=== PATIENT | female | born 1950 | race Caucasian/White ===

== ENCOUNTER 2024-05-11 11:16 | Emergency (ER) | payer MEDICARE, SELFPAY ==
[2024-05-11 11:20] VITALS: BP 128/68; PULSE 55; RESP 20; TEMP 36.6; O2SAT 98
--- NOTE | 2024-05-11 11:45 | DI.RAD_ITS ---
Exam(s) XR KNEE LT 4V AP,LAT,SHARMIN,PAT EXAM: XR KNEE LT 4V AP,LAT,SHARMIN,PAT CLINICAL HISTORY: pain patella and knee post fall. TECHNIQUE: 2D digital imaging was performed. COMPARISON: No exams were available for comparison FINDINGS: Four views: There is displaced comminuted fracture of the inferior half of the patella. There is a joint effusio n-hemarthrosis. No other fractures evident. No joint space narrowing. No osseous lesions. IMPRESSION: Displaced comminuted patellar fracture. DATA REPOSITORY: RADIATION DOSE DELIVERED:
--- NOTE | 2024-05-12 08:21 | W.ED.GENAD ---
Discharge Plan Disposition Patient Disposition: Home Condition: Stable Discharge Details Clinical Impression: Patellar fracture Primary Care Provider: Unknown,Unknown ED Provider: Margarita Fry Home Meds and New Rx's Prescriptions: New oxycodone-acetaminophen [Percocet] 5-325 mg tablet 1 tab PO Q8H PRNQty: 8 0RF Continued aspirin 325 MG tablet,delayed release (DR/EC) 325 mg PO DAILY metoprolol tartrate 12.5 MG tablet 12.5 mg PO DAILY flecainide 100 mg tablet 100 mg PO 2XD Patient Comments: TAKE 1 TABLET TWICE A DAY Discharge Instructions Instructions: Patella Fracture (DC) Additional Instructions: Dr. Michel will likely operate on your patellar fracture tomorrow, they will call you to confirm surgery tonight Hold your aspirin No food or fluid after 12 AM Ice, elevate, Tylenol 650 every 6 hours as needed for pain, you may take the oxycodone as needed for pain uncontrolled with Tylenol Should you have sensation change or worsening pain, please be reevaluated Referrals: Jordan Michel MD [ [facility] STAFF PHYSICIAN] - 1 day Discharge Data Discharge Date/Time-TO BE ENTERED AT DEPARTURE: 05/11/24 13:24 HPI General Date/Time Provider Initiated Documentation: 05/11/24 11:47. HPI Narrative: This rosa 73-year-old female presents post fall from standing. Patient's foot got stuck in the garage door cord. She landed directly on her left knee. She denies any additional injuries. She is not anticoagulated. Past medical history significant for atrial fibrillation on flecainide and aspirin Related Data Home Medications ?Medication ?Instructions ?Recorded ?Confirmed aspirin 325 mg tablet,delayed 325 mg PO DAILY 04/02/15 05/11/24 release metoprolol tartrate 25 mg tablet 12.5 mg PO DAILY 04/02/15 05/11/24 flecainide 100 mg tablet 100 mg PO 2XD 05/11/24 05/11/24 oxycodone-acetaminophen 5 mg-325 1 tab PO Q8H PRN #8 tabs 05/11/24 05/11/24 mg tablet (Percocet) Previous Rx's ?Medication ?Instructions ?Recorded oxycodone-acetaminophen 5 mg-325 1 tab PO Q8H PRN #8 tabs 11/20/24 mg tablet (Percocet) Allergies Allergy/AdvReac Type Severity Reaction Status Date / Time No Known Allergies Allergy Verified 05/11/24 14:26 General Stated Complaint: Orthopedic JULIAN: 4 Exam Narrative Exam Narrative: Alert, oriented, no visible signs of head injury, no left hip pain or left ankle pain, neurovascularly intact, patella with evidence of prepatellar bursitis And swelling. Small quarter sized ecchymosis to right wrist, range of motion intact, neurovascularly intact all 4 extremities. Course Vital Signs Vital signs: Vital Signs Temperature 36.6 C 05/11/24 11:20 Pulse 55 L 05/11/24 11:20 Respiratory Rate 20 05/11/24 11:20 Blood Pressure 128/68 05/11/24 11:20 Pulse Oximetry 98 05/11/24 11:20 Temperature 36.6 C 05/11/24 11:20 Pulse 55 L 05/11/24 11:20 Respiratory Rate 20 05/11/24 11:20 Respiratory Effort Normal 05/11/24 11:21 Blood Pressure 128/68 05/11/24 11:20 Blood Pressure Position Sitting 05/11/24 11:20 Pulse Oximetry 98 05/11/24 11:20 Oxygen Delivery Method Room Air 05/11/24 11:20 Oxygen Flow Rate 0 05/11/24 11:20 Pain Level 5 05/11/24 12:32 Medical Decision Making 73-year-old female presenting with injury to left knee. X-ray shows evidence of displaced patellar fracture with effusion in knee per radiology interpretation and my review. Case discussed with Dr. Michel recommendation for surgery. Patient placed in a knee immobilizer and given crutches. She will be n.p.o. after midnight and orthopedics will call to arrange surgery. Patient is neurovascularly intact. Patient is ambulatory with steady gait. Weightbearing as tolerated with knee immobilizer in place. Small amount of oxycodone distributed, risk of addiction reviewed. Discharged home ambulatory with safe gait with Quality:SDOH Health Related Social Needs: No Data to Display PFSH All Active Problems (Updated 05/12/24 @ 07:33 by Jordan Michel MD) Displaced fracture of left patella (Acute 05/11/24) Herpes zoster (Acute) Medical History (Updated 05/12/24 @ 07:33 by Jordan Michel MD) Afib See's cardiology in [place] per pt. states last seen 10/2023 Surgical History (Updated 05/11/24 @ 14:25 by Frank Silva) Hx of wisdom tooth extraction Social History Smoking/Tobacco Use Status: Never Smoking risk assessment performed?: Yes Alcohol Intake: current Alcohol Intake frequency: a few times a week Drug use: Never Substance use type: does not use Housing: house Do you feel safe at home: Yes Do you feel safe in your relationship?: Yes PAWSS Have you Been Recently Intoxicated or Drunk Within the Last 30 days?: No Have you Ever Experienced Previous Episodes of Alcohol Withdrawal?: No Have you ever Experienced Withdrawal Seizures?: No Have you ever Experienced Delirium Tremens(DT)s?: No Have you ever undergone Alcohol Rehabilitation Treatment (i.e, inpt ot outpatient treatment programs)?: No Have you ever Experienced Blackouts?: No Have you ever Combined Alcohol with other Downers within the last 90 days?: No Have you ever Combined Alcohol with any other Substance of Abuse during the last 90 days?: No Positive Blood Alcohol level on Presentation? [PCS.BAL]: No Evidence of Increased Autonomic Activity (i.e. HR>120, tremor, sweating, agitation, nausea)?: No Result: 0
--- NOTE | 2024-06-08 15:16 | NUR.NOTE ---
Acessed Pt chart to print discharge summary for [facility]
== END 2024-05-11 13:24 | disposition home or self-care (01) ==
LOC: ER 13:47
PROVIDERS: Emergency Provider Physician Assistant
DX: S82.092A Other fracture of left patella, initial encounter for closed fracture (principal); M25.062 Hemarthrosis, left knee; I48.91 Unspecified atrial fibrillation; Z79.82 Long term (current) use of aspirin; W18.39XA Other fall on same level, initial encounter; Y93.01 Activity, walking, marching and hiking; Y92.015 Private garage of single-family (private) house as the place of occurrence of the external cause
CPT/HCPCS: 99284; 73564

== ENCOUNTER 2024-05-12 10:48 | Day surgery (SDC) | payer MEDICARE, SELFPAY ==
[2024-05-12] VITALS (15 sets, daily range): BP systolic 90–128; BP diastolic 44–78; PULSE 37–61; RESP 12–23; TEMP 36.3–37; O2SAT 95–100; BMI 19.6
--- NOTE | 2024-05-12 07:19 | W.PM.DSUDISC ---
Date of service: 05/12/24 Time of Service: 16:00 Discharge Plan Disposition Patient Disposition: Home Condition: Stable Discharge Details Attending Provider: Jordan Michel Primary Care Provider: Unknown,Unknown Home Meds and New Rx's Prescriptions: New naproxen 250 mg tablet 250 mg PO BID PRN (Reason: Moderate pain) Qty: 20 0RF tramadol 50 mg tablet 50 mg PO TID PRN (Reason: moderate to severe pain) Qty: 10 0RF Continued aspirin 325 MG tablet,delayed release (DR/EC) 325 mg PO DAILY metoprolol tartrate 12.5 MG tablet 12.5 mg PO DAILY flecainide 100 mg tablet 100 mg PO 2XD Patient Comments: TAKE 1 TABLET TWICE A DAY oxycodone-acetaminophen [Percocet] 5-325 mg tablet 1 tab PO Q8H PRNQty: 8 0RF Discharge Instructions Additional Instructions: Surgery: Open treatment patella fracture with partial excision and patellar tendon advancement/repair Activity: Weightbearing as tolerated with knee in full extension for 8 weeks. Use knee brace when ambulatory to maintain knee straight. Crutches or walker for support. You may loosen/remove knee brace while resting with knee straight. Outpatient physical therapy will be prescribed on follow-up. CONSERVATIVE patellar tendon repair protocol- No active knee extension for 6 weeks. Weightbearing in full extension for 8 weeks. Flexion 0-30 degrees at week 2, advance about 10 degrees/week with goal 0-90 degrees flexion at week 8 postop and 120 degrees flexion week 10. Gentle spin/bike after 10 weeks, close?chain strengthening after 3 months, eccentric strengthening after 4 months Prescriptions: Resume home aspirin 325mg daily tomorrow morning Naproxen 250 mg take 1 every 12 hours with a meal as needed for moderate pain (do not use at same time as ibuprofen) Tramadol 50 mg take 1 every 8 hours as needed for severe pain You may use [id number]-[id number] Tylenol (acetaminophen) as needed for mild to moderate pain. These pain medications may be taken all at once or in different combinations as needed. Dressings: Leave splint and dressing in place until follow-up. Keep clean and dry at all times. Follow-up: 10-[address] Michel. You may take off the leg compression stockings this evening at home. You may also leave them on a few days longer if you have a history of leg swelling or edema. Let us know right away if you develop any redness, drainage, fevers, chest pain, or trouble breathing. Do not drink alcohol or drive for at least 24 hours after anesthesia. Please call the office during business hours with any questions or concerns. Discharge Orders Discharge Orders: Discharge Order (Routine); Ordered 05/12/24 Ordered By: Hipolito Mcmillan DS: Diagnosis Discharge Diagnosis (1) Displaced fracture of left patella: Status: Acute
--- NOTE | 2024-05-12 07:33 | ROE_ITS ---
Operative Note Operative Note PRE-OP DIAGNOSIS: Left displaced comminuted patella fracture POST-OP DIAGNOSIS: same PROCEDURE: Open treatment left patella fracture, CPT #05345: Partial excision and soft tissue repair SURGEON: Jordan Michel [employer]ITAL CAMPAIGN FUNDRAISER: Hipolito Mcmillan ANESTHESIA TYPE: Local By Surgeon and General LMA/ETT Refer to Anesthesia Record ESTIMATED BLOOD LOSS: 10 COMPLICATIONS: None Patient was transported to: PACU Patient's condition: stable Indications: Please see complete medical record for details. Findings: Significantly comminuted distal patella fracture with poor bone quality Procedure Description: In the operating room, general anesthesia was induced. The patient was positioned supine on the operating room table. All bony prominences were well- padded. Preoperative antibiotics were administered. The left knee was prepped and draped in the usual sterile fashion. The correct patient, procedure, and side of the procedure were all verified prior to incision. Longitudinal incision was made full-thickness down to the patella fracture, hematoma evacuated, fracture site exposed. There was only a small amount of extension medially and laterally into the retinaculum. There was significant comminution and loose soft bone fragments in the distal segment. The proximal segment was intact. The articular segment distally maybe about 10% was free floating between many eggshell thin soft pieces of the remainder of the distal bone loosely attached to the patellar tendon. Initial attempts were made with bone clamps to reduce this articular segment within the distal fragments and patellar tendon repair to the proximal fragment. Various bone clamps were used as well as suturing the retinaculum with suture tape repair and then a [id number]-pt-[id number] quadriceps to patellar tendon FiberTape repair. Unfortunately, the separate segmental articular segment could not be stabilized this way and continued to rotate through testing. The fiber tape was removed, this segmental piece of bone was reduced to the proximal segment as the distal pieces were too small and thin for fixation, and secured with a clamp taking care to orient the articular layer properly to the proximal segment. The bone on this piece was very soft. It was not amenable to screw fixation so instead a 2 mm bone tunnel was made into it through the proximal patella exiting the dorsal surface Hewson suture passer used to shuttle a suture tape and then tied to secure the segment. The proximal remainder of the many small shell like fragments were then brought approximately, but it became apparent this repair really needed a patellar tendon repair construct to have any strong fixation between the patellar tendon including the small fragments and the main segment of the patella and the remainder of the extensor mechanism. The small segmental piece of bone could not really be used in this repair and it was really just in the way preventing firmly attaching the patellar tendon to the remainder of the patella so it was excised. Bone tunnels were drilled in the remainder of the patella distal to proximal small rents made in the quadriceps to retrieve passing sutures. The patellar tendon was then sutured FiberTape Krak?w fashion including the many small bone fragments that were still attached to the proximal aspect of the patellar tendon and the free ends shuttled through the bone tunnels in the patella, reduction maintained and knots tied over the proximal patella bone nicely securing the main segment and reduced fashion to the patellar tendon and numerous bony fragments. The piece that had been removed was then used as bone graft with the bone removed from the articular cartilage made into tiny compat ible bone and compacted into the patellar tendon bone fragments and main patellar segment area. A 2.5 mm drill was then used to make 3 holes in the patella and bone clamps used to create a tunnel from the dorsal surface centimeter from the fracture site through the fracture and through which suture tape was used to secure the bony fragments around the bone graft to the remainder of the intact patella medially centrally and laterally. The retinacular repair was then completed medially and laterally with suture tape [id number] as well. X-rays showed reasonable appearance of the bone frag ments and patellar alignment. The construct was stable tested through knee flexion to about 45 degrees with no gapping or displacement. A few loose dorsal fragments were removed in order to prevent kneeling irritation from prominence. A FiberTape on a Alli needle was then used in a circumferential fashion around the patella with the knots tied superiorly to the patella pursestring additional repair. Wound was copiously irrigated normal saline. Subcutaneous tissue closed with 2- 0 Monocryl. Subcuticular with 3-0 Monocryl running followed by skin glue soft roll Fernando bandage and knee immobilizer to maintain the knee in full extension. The patient awoke from anesthesia without complication and was transferred to the recovery room in a stable condition. Date of Procedure: 05/12/24
--- NOTE | 2024-05-12 07:33 | W.ORTHOCONSU ---
Date of service: 05/12/24 Time of Service: 12:42 Assessment and Plan Assessment and plan (1) Displaced fracture of left patella: Status: Acute Assessment and plan: 73-year-old female with left displaced patella fracture. The patient had a mechanical slip and fall yesterday while closing her garage door. Subsequently seen in the ER, x-rays obtained, given a long-leg knee immobilizer and crutches. Patient took 1 Percocet last night before bed. Reports mild discomfort at rest, increased discomfort with movement. Denies any other significant injury from the fall. Denies numbness, tingling, weakness. Patient has a history of A-fib, takes full dose aspirin daily, last taken on 05/10/2024. Patient also takes flecainide and metoprolol. Typically in a regular rhythm. No known drug allergies. Patient admits that there are a couple steps to get into her house and then her bedroom is on the second story. Left knee moderate generalized edema, no skin breakdown, not vigorously tested but obvious deformity over the anterior knee patella. Sensory vascular intact throughout including distally. Left knee x-rays show displaced comminuted especially distally patella fracture Discussed thoroughly, recommend operative intervention for relatively healthy ambulatory patient. Increased bruising bleeding risk due to aspirin, but acceptable to proceed with the surgery. Could consider tourniquet use. Resume aspirin postoperatively for A-fib and DVT prophylaxis. Plan on weightbearing as tolerated in full extension with knee immobilizer, crutches or walker. Reviewed elevated risk for patellar post as traumatic arthritis. Decision to proceed with surgery today left patella ORIF The risks, benefits, and alternatives were thoroughly discussed. Patient was counseled regarding pain management, expected postoperative course, and recovery timeline. All questions were answered. Informed consent was obtained. Agree and understand treatment plan. Follow up 10-14 days after surgery. Will call if any changes or concerns. Breathing comfortably on room air. No coughs or wheezes. 2+ left radial pulse. Regular rate and rhythm. PFSH All Active Problems Displaced fracture of left patella (Acute 05/11/24) Herpes zoster (Acute) Medical History Afib See's cardiology [place] per pt. states last seen 10/2023 Surgical History Hx of wisdom tooth extraction Social History Smoking/Tobacco Use Status: Never Smoking risk assessment performed?: Yes Alcohol Intake: current Alcohol Intake frequency: a few times a week Drug use: Never Substance use type: does not use Housing: house Do you feel safe at home: Yes Do you feel safe in your relationship?: Yes
[2024-05-12] MEDS: Lactated Ringers 1,000 ML 30 ML IV (11:51)
--- NOTE | 2024-05-12 11:57 | W.ANESPRE ---
General Info Date of Service Date Performed: 05/12/24 Height: 5 ft 9 in Weight: 60.3 kg Body Mass Index (BMI): 19.6 Surgical Procedure: Operation Date: 05/12/24 12:55 Proposed Procedure Side Surgeon p Knee ORIF Patella Left Jordan Michel MD Meds Allergies and Home Medications Allergies Allergy/AdvReac Type Severity Reaction Status Date / Time No Known Allergies Allergy Verified 05/12/24 11:17 Home Medication ?Medication ?Instructions ?Recorded aspirin 325 mg tablet,delayed 325 mg PO DAILY 04/02/15 release metoprolol tartrate 25 mg tablet 12.5 mg PO DAILY 04/02/15 flecainide 100 mg tablet 100 mg PO 2XD 05/11/24 oxycodone-acetaminophen 5 mg-325 1 tab PO Q8H PRN #8 tabs 05/11/24 mg tablet (Percocet) Current Visit Medications: Current Medications Generic Name Dose Route Start Last Admin Trade Name Freq PRN Reason Stop Dose Admin Ringer's Solution 1,000 mls @ 30 mls/hr 05/12/24 06:00 05/12/24 11:51 IV 05/12/24 23:59 30 mls/hr INFUSION WM Administration Cefazolin Sodium/Dextrose 2 gm in 50 mls @ 100 mls/hr 05/12/24 06:00 Ancef Duplex IVPB 05/12/24 23:59 PREOP WM Tranexamic Acid 1,000 mg/ 110 mls @ 660 mls/hr 05/12/24 06:00 Sodium Chloride IVPB 05/12/24 23:59 PREOP WM IV Miscellaneous Supplies 1 each 05/12/24 06:00 Iv Access IV 05/12/24 23:59 DIRECTED WM Oxycodone HCl 0 mg 05/12/24 07:18 Oxycodone 5 Mg Tab PO 06/11/24 07:17 Q3H PRN PRN Pain Sodium Chloride 0 ml 05/12/24 06:00 Normal Saline Flush 10 Ml Syr IV 05/12/24 23:59 PRN PRN Sodium Chloride 0 ml 05/12/24 06:00 Normal Saline 10 Ml Vial IJ 05/12/24 23:59 DIRECTED PRN Sterile Water 0 ml 05/12/24 06:00 Water,Injection,Sterile 10 Ml Vial IJ 05/12/24 23:59 DIRECTED PRN PFSH Active Problems Active Problems: Problem Status Onset Code Displaced fracture of left patella Acute 05/11/24 [id number] Herpes zoster Acute B02.9 Medical History Medical History Afib See's cardiology in [place] per pt. states last seen 10/2023 Surgical History Surgical History Hx of wisdom tooth extraction Tobacco Smoking/Tobacco Use Status: Never Alcohol Alcohol Intake: current Alcohol intake frequency: a few times a week Substance Use Substance use: Never Substance use type: does not use Vital Signs and Lab Results Vital Signs Most Recent Vital Signs in EMR: Most Recent Vital Signs Temp Pulse Resp BP Pulse Ox 37.0 C 37 L 20 124/50 L 98 05/12/24 11:20 05/12/24 11:20 05/12/24 11:20 05/12/24 11:20 05/12/24 11:20 Lab Results Blood Type / Crossmatch: No Data to Display Complete Blood Count: No Data to Display Complete Metabolic Panel: No Data to Display Liver Function Panel: No Data to Display Coagulation Panel: No Data to Display Cardiac Panel: No Data to Display Arterial Blood Gas: No Data to Display Venous Blood Gas: No Data to Display Pancreas Panel: No Data to Display Thyroid Panel: No Data to Display Infectious Disease: No Data to Display Blood Cultures: No Data to Display Toxicology Panel: No Data to Display Anesthesia Assessment and Plan Anesthesia History Personal History: No History of Anesthesia Complications Family History: No Family History of Anesthesia Complications Exercise Tolerance Exercise Tolerance: Metabolic Equivalents>4 Cardiac & Pulmonary Exam Cardiac Exam: Normal S1/S2 Heart Sounds Pulmonary Exam: Clear Bilateral Breath Sounds Implantable Cardiac Device Does patient have a Pacemaker or an ICD?: No Airway Exam Known Difficult Airway: No Mallampati Class: 3 Mouth Opening: Normal (> 3cm) Thyromental Distance: Greater than 3 cm Neck Range of Motion: Full ROM Neck Circumference: Normal Teeth Condition: Normal Dentition ASA Classification ASA Score: ASA 2 Emergency Case?: No NPO Status NPO Status: NPO Clears >2 hours, Solids >8 hours Anesthesia Plan Resuscitation Status: Full Code Anesthesia Technique: General Anesthesia Airway Planned: Endotracheal Tube Pain Management: Surgeon and patient request nerve block Monitors Used: Standard Monitors Preoperative Comments:: 73 yo female for patella fracture repair. Sig PMHx: afib (flecainide, metoprolol), never smoker, occ EtOH. denies other major. Previous Anes: none in our system.
--- NOTE | 2024-05-12 12:24 | W.ANESPRE ---
General Info Date of Service Date Performed: 05/12/24 Height: 5 ft 9 in Weight: 60.3 kg Body Mass Index (BMI): 19.6 Surgical Procedure: Operation Date: 05/12/24 12:55 Proposed Procedure Side Surgeon p Knee ORIF Patella Left Jordan Michel MD Meds Allergies and Home Medications Allergies Allergy/AdvReac Type Severity Reaction Status Date / Time No Known Allergies Allergy Verified 05/12/24 11:17 Home Medication ?Medication ?Instructions ?Recorded aspirin 325 mg tablet,delayed 325 mg PO DAILY 04/02/15 release metoprolol tartrate 25 mg tablet 12.5 mg PO DAILY 04/02/15 flecainide 100 mg tablet 100 mg PO 2XD 05/11/24 oxycodone-acetaminophen 5 mg-325 1 tab PO Q8H PRN #8 tabs 05/11/24 mg tablet (Percocet) naproxen 250 mg tablet 250 mg PO BID PRN Moderate pain 05/12/24 #20 tabs tramadol 50 mg tablet 50 mg PO TID PRN moderate to 05/12/24 severe pain #10 tabs Current Visit Medications: Current Medications Generic Name Dose Route Start Last Admin Trade Name Freq PRN Reason Stop Dose Admin Ringer's Solution 1,000 mls @ 30 mls/hr 05/12/24 06:00 05/12/24 11:51 IV 05/12/24 23:59 30 mls/hr INFUSION WM Administration Cefazolin Sodium/Dextrose 2 gm in 50 mls @ 100 mls/hr 05/12/24 06:00 Ancef Duplex IVPB 05/12/24 23:59 PREOP WM Tranexamic Acid 1,000 mg/ 110 mls @ 660 mls/hr 05/12/24 06:00 Sodium Chloride IVPB 05/12/24 23:59 PREOP WM IV Miscellaneous Supplies 1 each 05/12/24 06:00 Iv Access IV 05/12/24 23:59 DIRECTED WM Oxycodone HCl 0 mg 05/12/24 07:18 Oxycodone 5 Mg Tab PO 06/11/24 07:17 Q3H PRN PRN Pain Sodium Chloride 0 ml 05/12/24 06:00 Normal Saline Flush 10 Ml Syr IV 05/12/24 23:59 PRN PRN Sodium Chloride 0 ml 05/12/24 06:00 Normal Saline 10 Ml Vial IJ 05/12/24 23:59 DIRECTED PRN Sterile Water 0 ml 05/12/24 06:00 Water,Injection,Sterile 10 Ml Vial IJ 05/12/24 23:59 DIRECTED PRN PFSH Active Problems Active Problems: Problem Status Onset Code Displaced fracture of left patella Acute 05/11/24 S82.002A Herpes zoster Acute B02.9 Medical History Medical History Afib See's cardiology in [place] per pt. states last seen 10/2023 Surgical History Surgical History Hx of wisdom tooth extraction Tobacco Smoking/Tobacco Use Status: Never Alcohol Alcohol Intake: current Alcohol intake frequency: a few times a week Substance Use Substance use: Never Substance use type: does not use Vital Signs and Lab Results Vital Signs Most Recent Vital Signs in EMR: Most Recent Vital Signs Temp Pulse Resp BP Pulse Ox 37.0 C 37 L 20 124/50 L 98 05/12/24 11:20 05/12/24 11:20 05/12/24 11:20 05/12/24 11:20 05/12/24 11:20 Lab Results Blood Type / Crossmatch: No Data to Display Complete Blood Count: No Data to Display Complete Metabolic Panel: No Data to Display Liver Function Panel: No Data to Display Coagulation Panel: No Data to Display Cardiac Panel: No Data to Display Arterial Blood Gas: No Data to Display Venous Blood Gas: No Data to Display Pancreas Panel: No Data to Display Thyroid Panel: No Data to Display Infectious Disease: No Data to Display Blood Cultures: No Data to Display Toxicology Panel: No Data to Display Anesthesia Assessment and Plan Anesthesia History Personal History: No History of Anesthesia Complications Family History: No Family History of Anesthesia Complications Exercise Tolerance Exercise Tolerance: Metabolic Equivalents>4 Pertinent Negatives Pertinent Negatives: No Symptoms of GERD Cardiac & Pulmonary Exam Cardiac Exam: Normal S1/S2 Heart Sounds Pulmonary Exam: Clear Bilateral Breath Sounds Implantable Cardiac Device Does patient have a Pacemaker or an ICD?: No Airway Exam Known Difficult Airway: No Mallampati Class: 3 Mouth Opening: Normal (> 3cm) Thyromental Distance: Greater than 3 cm Neck Range of Motion: Full ROM Neck Circumference: Normal Teeth Condition: Normal Dentition ASA Classification ASA Score: ASA 2 Emergency Case?: No NPO Status NPO Status: NPO Clears >2 hours, Solids >8 hours Anesthesia Plan Resuscitation Status: Full Code Anesthesia Technique: General Anesthesia Airway Planned: Endotracheal Tube Pain Management: Surgeon and patient request nerve block Monitors Used: Standard Monitors and SedLine
[2024-05-12] MEDS: Lactated Ringers 1,000 ML 50 ML IV (13:05)
[2024-05-12] MEDS: ceFAZolin 2 GM/50 ML BAG IVPB (13:12)
[2024-05-12] MEDS: Bupivacaine 0.25% Pres-Free W/EPI 30 ML VIAL (13:30)
--- NOTE | 2024-05-12 14:04 | ANES.NERVE_ITS ---
Nerve Block Single Injection Procedure Date and Time Date Performed: 05/12/24 Procedure Start: 12:46 Location Where Procedure Performed Procedure Location: Day Surgery Unit Reason Performed: Postoperative Analgesia Requesting Provider: Jordan Michel Timeout Performed Timeout Performed: Yes Monitoring Used ECG, Blood Pressure and SpO2 Sterility Sterility: Hand Hygiene, Surgical Cap, Surgical Mask, Sterile Gloves and Chlorhexidine Sedation Given During Procedure Sedation Given (Indicate Dose Given): No Sedation given Patient Mental Status Patient Mental Status: Awake Nerve Block 1st Nerve Block: Laterality: Left Block Type: Adductor Canal Ultrasound Image Saved?: Yes Needle / Catheter Used: 100mm SonoPlex II Local Anesthetic Bolus (Indicate Dose Given): Lidocaine used for local in filtration of skin, Injected in 3-5ml increments after negative blood aspiration, Bupivacaine 0.25% Dose:: 11 mL and Exparel Dose:: 10 mL Additives (Indicate Dose Given): None Ultrasound: Sterile probe cover and gel used Nerve Stimulator: Supplement to Ultrasound use and No twitch or parasthesia noted < 0.5 mA Paresthesia: None Procedure Tolerated: No Complications Procedure Outcome: Successful Performed By: Ramón Gomez Supervised By: Hernandez Sloan
--- NOTE | 2024-05-12 15:10 | DI.RAD_ITS ---
Exam(s) XR KNEE LT 1V EXAM: XR KNEE LT 1V CLINICAL HISTORY: Displaced fracture of left patella. TECHNIQUE: 2D and realtime digital imaging was performed. COMPARISON: CR XR KNEE LT 4V AP,LAT,SHARMIN,PAT from 05/11/2024 FINDINGS: Hard copy images show are in more removal of the fracture fragments at the inferior pole of the mims la Please see procedure note for details. Fluoro time: 57.4seconds RADIATION DOSE DELIVERED: [email or web address] Lennon=2.97 mGy
--- NOTE | 2024-05-12 16:22 | W.ANESPOSTOP ---
Postoperative Evaluation Date, Time and Location Date Performed: 05/12/24 Time Performed: 16:22 Patient Location: Day Surgery Unit Vital Signs Most Recent Imported Vital Signs: Most Recent Vital Signs Temp Pulse Resp BP Pulse Ox 36.5 C 59 L 18 109/59 L 95 05/12/24 16:00 05/12/24 16:09 05/12/24 16:09 05/12/24 16:09 05/12/24 16:09 Pain Score Most Recent Pain Score: Most Recent Pain Score Pain Level 0 05/12/24 16:00 Assessment Mental Status: Awake (Alert & Oriented to Patient Baseline) Airway and Respiratory Function: Patent airway with normal (patient baseline) respiratory exam Cardiovascular Function: Hemodynamically Stable Hydration Status: Adequately Hydrated Nausea & Vomiting: No Nausea or Vomiting Pain: Pt. Denies Any Pain Peripheral Nerve Block: Regional nerve block not resolved at time of post operative discharge
[2024-05-13 08:01] VITALS: BMI 19.6
== END 2024-05-12 17:08 | disposition home or self-care (01) ==
LOC: SUR 10:48
PROVIDERS: Visit Provider Student in an Organized Health Care Education/Training Program
PROC: (CPT 27524; principal; 2024-05-12 12:45)
DX: S82.042A Displaced comminuted fracture of left patella, initial encounter for closed fracture; W01.0XXA Fall on same level from slipping, tripping and stumbling without subsequent striking against object, initial encounter; G89.18 Other acute postprocedural pain
CPT/HCPCS: 27524; 64447; 76000; 73560; C9290; J0131; J0665; J0690; J1100; J2371; J2405; J2704

== ENCOUNTER 2024-05-24 15:28 | Outpatient (CLI) | payer MEDICARE, SELFPAY ==
--- NOTE | 2024-05-24 11:15 | DI.RAD_ITS ---
Exam(s) XR KNEE LT 2V AP,LAT EXAM: XR KNEE LT 2V AP,LAT INDICATION: F/U FRACTURE. COMPARISON: CR XR KNEE LT 4V AP,LAT,SHARMIN,PAT from 05/11/2024 XA XR KNEE LT 1V from 05/12/2024 TECHNIQUE: 2D digital imaging was performed. Two views. FINDINGS: Stable stable alignment fracture at the inferior pole of the patella. Some anterior soft tissue swel ling remains present. DATA REPOSITORY: RADIATION DOSE DELIVERED:
== END 2024-05-24 15:29 | disposition home or self-care (01) ==
LOC: DIORS 15:28
PROVIDERS: Visit Provider Student in an Organized Health Care Education/Training Program
DX: S82.042D Displaced comminuted fracture of left patella, subsequent encounter for closed fracture with routine healing; X58.XXXD Exposure to other specified factors, subsequent encounter
CPT/HCPCS: 99024; 73560

== ENCOUNTER 2024-06-28 15:53 | Outpatient (CLI) | payer MEDICARE, SELFPAY ==
--- NOTE | 2024-06-28 11:00 | DI.RAD_ITS ---
Exam(s) XR KNEE LT 2V AP,LAT EXAM: XR KNEE LT 2V AP,LAT CLINICAL HISTORY: F/U FRACTURE. TECHNIQUE: 2D digital imaging was performed of the left knee. Two images were obtained. AP and lat eral views were obtained. COMPARISON: CR XR KNEE LT 2V AP,LAT from 05/24/2024 FINDINGS: BONES: There is again seen a comminuted fracture involving the inferior pole of the left patella. T here is a question of mild increased distraction of the fracture compared to the prior examination fr om 05/24/2024. No bony destructive lesion is seen. JOINTS: The knee is normally aligned. There is a small joint effusion. No loose body. SOFT TISSUE: There is persistent mild soft tissue swelling anteriorly. IMPRESSION: Comminuted fracture of the inferior pole of the left patella with question of mild increased distract ion since the prior examination. DATA REPOSITORY: RADIATION DOSE DELIVERED:
== END 2024-06-28 15:54 | disposition home or self-care (01) ==
LOC: DIORS 15:53
PROVIDERS: Visit Provider Student in an Organized Health Care Education/Training Program
DX: S82.042D Displaced comminuted fracture of left patella, subsequent encounter for closed fracture with routine healing (principal); X58.XXXD Exposure to other specified factors, subsequent encounter
CPT/HCPCS: 99024; 73560

== ENCOUNTER 2024-08-09 15:27 | Outpatient (CLI) | payer MEDICARE, SELFPAY ==
--- NOTE | 2024-08-09 11:00 | DI.RAD_ITS ---
Exam(s) XR KNEE LT 2V AP,LAT EXAM: XR KNEE LT 2V AP,LAT CLINICAL HISTORY: F/U FRACTURE. TECHNIQUE: 2D digital imaging was performed of the left knee. Two images were obtained. AP and lat eral views were obtained. COMPARISON: No exams were available for comparison FINDINGS: BONES: There is again seen a comminuted fracture of the inferior pole of the patella. The fracture lines are less visualized compared to the prior examination suggesting some interval healing. No new fracture is identified. No bony destructive lesion is seen. JOINTS: The knee is normally aligned. There is a small joint effusion. No loose body. SOFT TISSUE: Normal. IMPRESSION: Stable alignment of the healing patellar fracture. DATA REPOSITORY: RADIATION DOSE DELIVERED:
== END 2024-08-09 15:28 | disposition home or self-care (01) ==
LOC: DIORS 15:28
PROVIDERS: Visit Provider Student in an Organized Health Care Education/Training Program
DX: S82.002D Unspecified fracture of left patella, subsequent encounter for closed fracture with routine healing (principal); X58.XXXD Exposure to other specified factors, subsequent encounter
CPT/HCPCS: 99024; 73560

== ENCOUNTER 2024-11-08 11:20 | Outpatient (CLI) | payer MEDICARE, SELFPAY ==
--- NOTE | 2024-11-08 11:00 | DI.RAD_ITS ---
Exam(s) XR KNEE LT 2V AP,LAT EXAM: XR KNEE LT 2V AP,LAT CLINICAL HISTORY: F/U FRACTURE. TECHNIQUE: 2D digital imaging was performed of the left knee. Two images were obtained. AP and lat eral views were obtained. COMPARISON: CR XR KNEE LT 4V AP,LAT,SHARMIN,PAT from 05/11/2024 CR XR KNEE LT 2V AP,LAT from 05/24/2024 CR XR KNEE LT 2V AP,LAT from 06/28/2024 CR XR KNEE LT 2V AP,LAT from 08/09/2024 FINDINGS: BONES: There is stable alignment of the fracture of the inferior pole of the patella. The fracture lines are not visualized on the current examination. No bony destructive lesion is seen. JOINTS: The knee is normally aligned. No joint effusion is seen. No loose body. SOFT TISSUE: Normal. IMPRESSION: Healed inferior patellar fracture. DATA REPOSITORY: RADIATION DOSE DELIVERED:
== END 2024-11-08 11:21 | disposition home or self-care (01) ==
LOC: DIORS 11:20
PROVIDERS: Visit Provider Student in an Organized Health Care Education/Training Program
DX: S82.002D Unspecified fracture of left patella, subsequent encounter for closed fracture with routine healing (principal); X58.XXXD Exposure to other specified factors, subsequent encounter
CPT/HCPCS: 99213; 73560